=== PATIENT | female | born 1955 | race Caucasian/White ===

== ENCOUNTER 2025-01-24 00:36 | Emergency (ER) | payer MEDICARE, OTHER, SELFPAY ==
[2025-01-24 00:37] VITALS: BMI 36.6
[2025-01-24 00:52] VITALS: BP 160/79; PULSE 83; RESP 20; TEMP 37.1; O2SAT 98
--- NOTE | 2025-01-24 01:06 | PD.EDRME ---
Rapid Medical Screening Exam RME Arrival date/time: 01/24/25 00:36 Chief Complaint: Neuro Symptoms/Deficit Time Seen by Provider: 01/24/25 00:55 Vital signs: Vital Signs Temperature 98.8 F 01/24/25 00:52 Pulse Rate 83 01/24/25 00:52 Respiratory Rate 20 01/24/25 00:52 Blood Pressure 160/79 H 01/24/25 00:52 Pulse Oximetry (%) 98 01/24/25 00:52 Oxygen Delivery Method Room Air 01/24/25 00:52 Vital signs reviewed by provider: Yes RME Narrative: 69-year-old female presents to the ED with a complaint of right upper extremity numbness and tingling. Patient initially noticed symptoms on Saturday. They have become progressively worse over the past 5 days. She denies any visual or hearing changes. She denies any nausea or vomiting. She denies any speech difficulties. She denies any numbness or tingling to her right lower extremity. She denies any headache or facial symptoms. She has occasional palpitations which she describes as a neurological anxiety not a mental anxiety. She also describes a generalized weakness. I have greeted and performed a focused initial assessment of this patient. A comprehensive ED assessment and evaluation of the patient, analysis of all test results, and completion of the medical decision making process will be conducted by additional ED providers.
--- NOTE | 2025-01-24 01:09 | EKG_ITS ---
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
--- NOTE | 2025-01-24 01:09 | XR_ITS ---
Examination: CT brain head without contrast. 2-D sagittal coronal reconstructions Date and time of exam:January 24, 2025 0225 hours INDICATIONS: Right arm paresthesias today CTDI: vol (mGy):51 DLP: (mGycm):1041 Technique: Multiple CT axial sections of the brain have been obtained, 5 mm slice thickness. Contrast has not been administered. 2-D sagittal, coronal reconstructions have been obtained Low dose protocols were performed. One or more of the following dose reduction techniques were used; automated exposure control, adjustment of the mA and/or KV according to patient size, use of iterative reconstruction technique. Findings: No significant ventricular enlargement. Intra-axial or extra-axial hemorrhage density is not seen. No mass effect or midline shift Basal cisterns are not remarkable. Fourth ventricle is midline. Cranial vault intact. Impression: Negative for acute hemorrhage, mass effect or midline shift. If symptoms persist, consider brain MRI follow-up
--- NOTE | 2025-01-24 01:09 | XR_ITS ---
Examination: PA lateral chest 2 views TECHNIQUE: Upright PA and lateral chest 2 views Chest pain and left arm pain and weakness today Date and time: January 24, 2025 compared to chest films dating to January 01, 2021 FINDINGS: Stable bilateral pulmonary nodules compared with January 11, [address] chest report March 03, 2021 Normal heart size No pneumonia or pulmonary edema IMPRESSION: No pneumonia or pulmonary edema
[2025-01-24 01:19] LABS: Collection Type, Urine Clean Catch
[2025-01-24 01:34] LABS: Bacteria,Urine Rare; Bilirubin,Urine Negative (Negative); Blood,Urine Negative (Negative); Clarity,Urine Clear (Clear/Hazy); Color,Urine Colorless (Lt Yel-Yel); Glucose, Urine Negative (Negative); Ketones,Urine Negative (Negative); Leukocyte Esterase,Urine Negative (Negative); Nitrite,Urine Negative (Negative); PH,Urine 6.5 (5.0-7.0); Protein,Urine Negative (Neg - Trace); RBC,Urine 1 /hpf (0-3); Specific Gravity,Urine 1.005 (1.001-1.035); Squamous Epithelial Cell,Urine 2 /hpf (0-5); Urobilinogen,Urine Negative mg/dL (0.0-1.0); WBC,Urine < 1 /hpf (0-5)
[2025-01-24 01:53] LABS: Basophils # (Auto) 0.1 Thou/mm3 (0.0-0.2); Basophils % (Auto) 1 % (0-2.5); Eosinophils # (Auto) 0.1 Thou/mm3 (0.0-0.5); Eosinophils % (Auto) 1 % (0-10); Hemoglobin 10.3 g/dL (12.0-16.0); Immature Granulocytes % (Auto) 0 % (0-0); Immature Granulocytes Auto 0.05 Thou/mm3 (0.00-0.00); Lymphocytes # (Auto) 2.4 Thou/mm3 (1.0-4.8); Lymphocytes % (Auto) 19 % (10-50); Mean Corpuscular HGB Conc 29.4 g/dl (31.0-37.0); Mean Corpuscular Hemoglobin 18.2 pg (25.0-35.0); Mean Corpuscular Volume 62 fL (80-100); Monocytes # (Auto) 0.7 Thou/mm3 (0.0-0.8); Monocytes % (Auto) 5 % (0-12); Neutrophils # (Auto) 9.1 Thou/mm3 (1.8-7.7); Neutrophils % (Auto) 73 % (37-80); Nucleated Red Blood Cell % 0 /100 WBC (0); Platelet Count 285 Thou/mm3 (140-440); RDW Standard Deviation 41.6 fL (36.4-46.3); Red Blood Count 5.65 Miln/mm3 (4.00-5.20); White Blood Count 12.4 Thou/mm3 (3.6-11.0)
[2025-01-24 02:09] LABS: Partial Thromboplastin Time 26.3 Seconds (22.0-36.0); Prothrombin Time 10.9 Seconds (9.0-12.2)
[2025-01-24 02:11] LABS: B-Type Natriuretic Peptide < 20 pg/mL (0-100)
[2025-01-24 02:20] LABS: Alanine Aminotransferase 30 U/L (10-49); Albumin, Serum 4.7 gm/dL (3.4-4.8); Albumin/Globulin Ratio 1.8 (1.2-2.2); Alkaline Phosphatase 118 U/L (46-116); Anion Gap 11 (7-16); Aspartate Amino Transferase 31 U/L (0-34); BUN/Creatinine Ratio 14 Ratio (12-20); Bilirubin,Total 0.6 mg/dL (0.3-1.2); Blood Urea Nitrogen 13 mg/dL (9-23); Calcium 9.1 mg/dL (8.3-10.6); Calcium (Corrected) 9.1 mg/dL (8.5-10.1); Carbon Dioxide 23.2 mMol/L (20.0-31.0); Chloride 106 mMol/L (98-107); Creatinine (Component) 0.9 mg/dL (0.6-1.3); Globulin 2.6 gm/dL (2.3-3.5); Glucose 105 mg/dL (74-106); LDH (Lactate Dehydrogenase) 205 U/L (120-246); Magnesium 1.7 mg/dL (1.6-2.6); Osmolality,Calculated 279 (275-295); Sodium 140 mMol/L (136-145); Total Protein 7.3 gm/dL (5.7-8.2); eGFR > 60 See Note
--- NOTE | 2025-01-24 03:13 | PRELIM_ITS ---
CT scan of the head without intravenous contrast (axial sections with sagittal and coronal reformats). January 24, 2025 at 0225 hours Clinical History: Right upper extremity numbness/tingling, gen weakness. Comparison: None currently available for review Findings: There is mild white matter disease within the cerebral hemispheres which is nonspecific but may represent chronic small vessel ischemic change. There is no intracranial hemorrhage, extra-axial collection, mass, mass-effect or midline shift. There is good lemus-white differentiation. There is no CT evidence of acute large vascular territorial infarct. Ventricles are not enlarged or effaced. There are vascular calcifications along the carotid siphons bilaterally. Visualized paranasal sinuses and tympanomastoid cavities are clear. The bony calvarium is intact. Impression: No intracranial hemorrhage, mass-effect or midline shift. No CT evidence of acute large vascular territorial infarct. Report Electronically Signed By: Leo Mitchell 01/24/2025 3:12:59 AM [EST]
[2025-01-24 03:27] LABS: Path Review Blood Smear Sent to Pathologist
[2025-01-24 05:37] VITALS: BP 171/90; PULSE 70; RESP 18; TEMP 36.7; O2SAT 98
--- NOTE | 2025-01-24 07:00 | EDNOTE_ITS ---
ED General RME/HPI General Chief complaint: Neuro Symptoms/Deficit Stated complaint: WEAKNESS AND NUMBNESS IN RIGHT ARM Time Seen by Provider: 01/24/25 00:55 Arrival date/time: 01/24/25 00:36 Limitations: no limitations RME / HPI RME / HPI narrative: 69-year-old female presents to the ED with a complaint of right upper extremity numbness and tingling. Patient initially noticed symptoms on Saturday. They have become progressively worse over the past 5 days. She denies any visual or hearing changes. She denies any nausea or vomiting. She denies any speech difficulties. She denies any numbness or tingling to her right lower extremity. She denies any headache or facial symptoms. She has occasional palpitations which she describes as a neurological anxiety not a mental anxiety. She also describes a generalized weakness. I have greeted and performed a focused initial assessment of this patient. A comprehensive ED assessment and evaluation of the patient, analysis of all test results, and completion of the medical decision making process will be conducted by additional ED providers. DR. PATE MAIN ED EVALUATION: 69 year old female presents to the Emergency Department with complaint of events lasting seconds to a few minutes consisting of right arm weakness and right hand numbness. Onset of symptoms on/off for 5 days, last event was at 642 AM today. No right arm pain at all. No neck pain, no headache, no chest pain, or any pain. PMHx: Hypertension, diabetes, hyperlipidemia, and bad right shoulder from old accident but no surgery done. Social Hx: No tobacco, alcohol, or substance use. Related Data Home Medications ?Medication ?Instructions ?Recorded ?Confirmed metformin 500 mg tablet 500 mg PO QDAY 04/13/2404/02 metoprolol succinate 25 mg capsule 25 mg PO QDAY 04/1304/13/24 sprinkle, ext. release 24 hr Allergies Allergy/AdvReac Type Severity Reaction Status Date / Time No Known Allergies Allergy Verified 04/13/24 11:26 Review of Systems Review of Systems Systems Reviewed: All systems reviewed, normal except as documented Past Medical History Past Medical History NEUROLOGIC: Positive Neurological Disorders and Transient Ischemic Attacks (TIA) (October 2022) CARDIAC: Positive Cardiac Disorders and Hypertension RESPIRATORY: Positive Sleep Apnea GASTROINTESTINAL: Positive Gastrointestinal Disorders and Obesity MUSCULOSKELETAL: Positive Musculoskeletal Disorders and Arthritis ENDOCRINE: Positive Endocrine Disorders and Diabetes Mellitus Type 2 OTHER HISTORY: Positive Hospitalization (TIA), Anesthesia Reactions (it took 3 weeks to wake up) and Measles Family History FAMILY HISTORY: Positive Family Psychiatric Problems, Family Cardiac Disorders and Family Surgery Surgical History SURGICAL: Positive Adenoidectomy and Abdominal Surgery Social History SMOKING STATUS: Never smoker SUBSTANCE USE: does not use ALCOHOL: Never ED Exam General Limitations: Present no limitations General appearance: Present alert and in no apparent distress Head Head exam: Present atraumatic, normocephalic and normal inspection Eye Eye exam: Present normal appearance, PERRL and EOMI ENT ENT exam: Present normal exam, normal oropharynx and mucous membranes moist Neck Neck exam: Present normal inspection, full ROM and trachea midline Chest Chest inspection: Present normal inspection and symmetric chest wall rise Respiratory Respiratory exam: Present normal lung sounds bilaterally Cardiovascular Cardiovascular exam: Present regular rate, normal rhythm and normal heart sounds Abdominal Exam Abdominal exam: Present soft and normal bowel sounds Extremities Exam Extremities exam: Present normal inspection and full ROM Back Exam Back exam: Present normal inspection and full ROM Neurological Exam Neurological exam: Present alert, oriented X3 and CN II-XII intact Psychiatric Psychiatric exam: Present normal affect and normal mood Skin Skin exam: Present warm, dry, intact and normal color Course Quality Measures none Orders Category Date Time Status EKG (ED ONLY) *Do not use* NOW Care 01/24/25 01:[address] head/brain wo con Stat Exams 01/24/25 01:09 Completed EKG (ED Only) Stat Exams 01/24/25 01:09 Draft XR chest 2V Stat Exams 01/24/25 01:09 Completed B-Type Natriuretic Peptide Stat Lab 01/24/25 01:44 Completed CBC Stat Lab 01/24/25 01:44 Completed Comprehensive Metabolic Panel Stat Lab 01/24/25 01:44 Completed LDH (Lactate Dehydrogenase) Stat Lab 01/24/25 01:44 Completed Magnesium Stat Lab 01/24/25 01:44 Completed Partial Thromboplastin Time Stat Lab 01/24/25 01:44 Completed Path Review Blood Smear Stat Lab 01/24/25 01:44 Completed Prothrombin Time with INR Stat Lab 01/24/25 01:44 Completed Troponin I Stat Lab 01/24/25 01:44 Completed Urinalysis Stat Lab 01/24/25 01:15 Completed Vital Signs Vital signs: Vital Signs Temperature 98.8 F 01/24/25 00:52 Pulse Rate 83 01/24/25 00:52 Respiratory Rate 20 01/24/25 00:52 Blood Pressure 160/79 H 01/24/25 00:52 Pulse Oximetry (%) 98 01/24/25 00:52 Oxygen Delivery Method Room Air 01/24/25 00:52 Discharge Plan Plan Patient Disposition: HOME (Self Care) Prescriptions/Referrals Prescriptions/Med Rec: No Action metformin 500 mg Tablet 500 mg PO QDAY metoprolol succinate 25 mg Capsule,Sprinkle,Er 24hr 25 mg PO QDAY Referrals: Jamilah Rashid PA-C [Primary Care Provider] - In 1 week Problem List Clinical Impression: Arm paresthesia, right Patient/Caregiver Discharge Instructions Education Materials: ED Paraesthesias Additional Instructions: Please follow-up with your primary care physician within a week and consider a neurologist referral. Return to the Emergency Department as needed. Print Language: Grenadian Stand Alone Forms: [employer] Award Info., Patient Portal Info Letter MDM Narrative [facility] hospital course: I, Diamante Rodrigez am scribing for and in the presence of Dr. Pate. Clinical Information Provided by patient Medical Records Reviewed [facility] Meds/Rx Considered, not Ordered None Labs/Rad/Tests considered, not Ordered None Chronic Illness/Social Conditions Add or document further as needed: Hypertension, diabetes, hyperlipidemia, and bad right shoulder from old accident but no surgery done. EKG Interpretation EKG #1: Date/time of EK01/24/25 0111 hours EKG interpretation: sinus rhythm, rate 86, no acute changes, LA interval 207 ms, QRS duration 100 ms, QT/QTc 374/447, P-R-T axis 57, 22, 50 Lab Interpretation Labs: interpreted by mt Lab(s) interpretation(s): no acute findings Imaging Radiology reports / interpretation(s): Procedure(s): CT head/brain wo con Accession Number(s): [id number] cc: Jamilah Rashid PA-C; Julio César Martínez MD; Vicky Allen PA-C~ Examination: CT brain head without contrast. 2-D sagittal coronal reconstructions Date and time of exam:January 24, 2025 0225 hours INDICATIONS: Right arm paresthesias today CTDI: vol (mGy):51 DLP: (mGycm):1041 Technique: Multiple CT axial sections of the brain have been obtained, 5 mm slice thickness. Contrast has not been administered. 2-D sagittal, coronal reconstructions have been obtained Low dose protocols were performed. One or more of the following dose reduction techniques were used; automated exposure control, adjustment of the mA and/or KV according to patient size, use of iterative reconstruction technique. Findings: No significant ventricular enlargement. Intra-axial or extra-axial hemorrhage density is not seen. No mass effect or midline shift Basal cisterns are not remarkable. Fourth ventricle is midline. Cranial vault intact. Impression: Negative for acute hemorrhage, mass effect or midline shift. If symptoms persist, consider brain MRI follow-up Dictated By: Julio César Martínez MD Procedure(s): XR chest 2V Accession Number(s): [id number] cc: Jamilah Rashid PA-C; Julio César Martínez MD; Vicky Allen PA-C~ Examination: PA lateral chest 2 views TECHNIQUE: Upright PA and lateral chest 2 views Chest pain and left arm pain and weakness today Date and time: January 24, 2025 compared to chest films dating to January 01, 2021 FINDINGS: Stable bilateral pulmonary nodules compared with January 11, [address] chest report March 03, 2021 Normal heart size No pneumonia or pulmonary edema IMPRESSION: No pneumonia or pulmonary edema Dictated By: Julio César Martínez MD Medication Administration(s) none Diagnosis Differential diagnosis: Right arm paresthesia, muscle spasm, TIA Most likely dx, and/or detailed dx discussion: Right arm paresthesia Dispositon Disposition: Discharge Home
[2025-01-24 07:22] VITALS: BP 168/88; PULSE 72; RESP 18; TEMP 36.7; O2SAT 98
== END 2025-01-24 07:23 | disposition home or self-care (01) ==
PROVIDERS: Physician Assistant; Emergency Provider Emergency Medicine; PCP Physician Assistant Medical
DX: R20.2 Paresthesia of skin (principal); R00.2 Palpitations; R53.1 Weakness; E11.9 Type 2 diabetes mellitus without complications; E78.5 Hyperlipidemia, unspecified; I10 Essential (primary) hypertension
CPT/HCPCS: 36415; 70450; 71046; 80053; 81001; 83615; 83735; 83880; 84484; 85025; 85610; 85730; 93005; 99284

== ENCOUNTER → 2025-04-01 | Outpatient (CLI) | payer MEDICARE, OTHER, SELFPAY ==
--- NOTE | 2025-04-01 | XR_ITS ---
Examination: Ultrasound-guided fine needle percutaneous aspiration thyroid nodule, left thyroid nodule. Thyroid sonography, limited Exam date and time: April 01, 2025 1003 hours INDICATIONS: Left thyroid nodule on thyroid sonogram today. Technique: A timeout was completed verifying correct patient, procedure, site, positioning and special equipment if applicable. The patient was placed in supine position for the thyroid fine needle percutaneous aspiration The patient's left neck was prepped and draped in sterile fashion. Maximum barrier sterile technique, hand hygiene, ultrasound sterile technique. 1% lidocaine was used to anesthetize the skin and subcutaneous tissues to the patient's right thyroid nodule. Multiple fine needle aspirations were performed and multiple thyroid specimens placed in preservative according to the irm protocol. Specimens appears satisfactory. The attending radiologist was present for the entire procedure. Estimated blood loss 3 cc. The patient tolerated the procedure well and there were no complications. Impression: Successful ultrasound-guided fine-needle percutaneous aspiration thyroid nodule, left thyroid nodule.
[2025-04-01 07:56] LABS: Basophils # (Auto) 0.1 Thou/mm3 (0.0-0.2); Basophils % (Auto) 1 % (0-2.5); Eosinophils # (Auto) 0.4 Thou/mm3 (0.0-0.5); Eosinophils % (Auto) 4 % (0-10); Hematocrit 41.0 % (36.0-46.0); Hemoglobin 11.9 g/dL (12.0-16.0); Immature Granulocytes Auto 0.02 Thou/mm3 (0.00-0.00); Lymphocytes # (Auto) 2.2 Thou/mm3 (1.0-4.8); Lymphocytes % (Auto) 23 % (10-50); Mean Corpuscular HGB Conc 29.0 g/dl (31.0-37.0); Mean Corpuscular Hemoglobin 20.1 pg (25.0-35.0); Mean Corpuscular Volume 69 fL (80-100); Monocytes # (Auto) 0.7 Thou/mm3 (0.0-0.8); Monocytes % (Auto) 7 % (0-12); Neutrophils # (Auto) 6.4 Thou/mm3 (1.8-7.7); Neutrophils % (Auto) 66 % (37-80); Nucleated Red Blood Cell # 0.00 Thou/mm3 (0.00-0.00); Nucleated Red Blood Cell % 0 /100 WBC (0); Platelet Count 312 Thou/mm3 (140-440); RDW Standard Deviation 55.2 fL (36.4-46.3); Red Blood Count 5.93 Miln/mm3 (4.00-5.20); White Blood Count 9.7 Thou/mm3 (3.6-11.0)
[2025-04-01 09:09] LABS: INR 1.0 (0.9-1.3); Partial Thromboplastin Time 27.8 Seconds (22.0-36.0); Prothrombin Time 10.7 Seconds (9.0-12.2)
--- NOTE | 2025-04-01 09:30 | XR_ITS ---
Examination: Ultrasound-guided fine needle percutaneous aspiration thyroid nodule, right thyroid nodule. Thyroid sonography, limited Exam date and time: April 01, 2025 1001 hours INDICATIONS: Right thyroid nodule on thyroid sonogram today. Technique: A timeout was completed verifying correct patient, procedure, site, positioning and special equipment if applicable. The patient was placed in supine position for the thyroid fine needle percutaneous aspiration The patient's right neck was prepped and draped in sterile fashion. Maximum barrier sterile technique, hand hygiene, ultrasound sterile technique. 1% lidocaine was used to anesthetize the skin and subcutaneous tissues to the patient's right thyroid nodule. Multiple fine needle aspirations were performed and multiple thyroid specimens placed in preservative according to the irm protocol. Specimens appears satisfactory. The attending radiologist was present for the entire procedure. Estimated blood loss 3 cc. The patient tolerated the procedure well and there were no complications. Impression: Successful ultrasound-guided fine-needle percutaneous aspiration thyroid nodule, right thyroid nodule.
--- NOTE | 2025-04-01 09:30 | XR_ITS ---
Examination: Thyroid sonography complete TECHNIQUE: Grayscale sonographic images thyroid lobes Date and time: April 01, 2025 0950 hours INDICATIONS: History thyroid nodules FINDINGS: Right thyroid 5.1 cm Midpole nodule 13 x 17 mm Left thyroid 4.1 cm Midpole nodule 14 x 11 mm IMPRESSION: Bilateral thyroid nodules as above
== END | disposition home or self-care (01) ==
PROVIDERS: Radiology Diagnostic Radiology; PCP Physician Assistant Medical; Referring Provider Physician Assistant Medical; Visit Provider Physician Assistant Medical
DX: E04.2 Nontoxic multinodular goiter (principal)
CPT/HCPCS: 10005; 10006; 36415; 76536; 85025; 85610; 85730

== ENCOUNTER 2025-07-06 11:55 | Day surgery (SDC) | payer MEDICARE, OTHER, SELFPAY ==
--- NOTE | 2025-07-02 11:20 | EKG_ITS ---
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
[2025-07-02 11:28] LABS: Collection Type, Urine Clean Catch
[2025-07-02 12:11] LABS: Basophils # (Auto) 0.1 Thou/mm3 (0.0-0.2); Basophils % (Auto) 1 % (0-2.5); Eosinophils # (Auto) 0.5 Thou/mm3 (0.0-0.5); Eosinophils % (Auto) 5 % (0-10); Hematocrit 38.2 % (36.0-46.0); Hemoglobin 11.2 g/dL (12.0-16.0); Immature Granulocytes Auto 0.03 Thou/mm3 (0.00-0.00); Lymphocytes # (Auto) 2.8 Thou/mm3 (1.0-4.8); Lymphocytes % (Auto) 28 % (10-50); Mean Corpuscular HGB Conc 29.3 g/dl (31.0-37.0); Mean Corpuscular Hemoglobin 21.0 pg (25.0-35.0); Mean Corpuscular Volume 72 fL (80-100); Monocytes # (Auto) 0.9 Thou/mm3 (0.0-0.8); Monocytes % (Auto) 9 % (0-12); Neutrophils # (Auto) 6.0 Thou/mm3 (1.8-7.7); Neutrophils % (Auto) 58 % (37-80); Nucleated Red Blood Cell # 0.00 Thou/mm3 (0.00-0.00); Nucleated Red Blood Cell % 0 /100 WBC (0); Platelet Count 314 Thou/mm3 (140-440); RDW Standard Deviation 44.0 fL (36.4-46.3); Red Blood Count 5.34 Miln/mm3 (4.00-5.20); White Blood Count 10.3 Thou/mm3 (3.6-11.0)
[2025-07-02 12:16] LABS: Partial Thromboplastin Time 27.7 Seconds (22.0-36.0)
[2025-07-02 12:18] LABS: Bilirubin,Urine Negative (Negative); Blood,Urine Negative (Negative); Clarity,Urine Clear (Clear/Hazy); Color,Urine Lt-Yellow (Lt Yel-Yel); Glucose, Urine Negative (Negative); Ketones,Urine Negative (Negative); Leukocyte Esterase,Urine Negative (Negative); Nitrite,Urine Negative (Negative); PH,Urine 6.0 (5.0-7.0); Protein,Urine Negative (Neg - Trace); RBC,Urine 2 /hpf (0-3); Specific Gravity,Urine 1.012 (1.001-1.035); Squamous Epithelial Cell,Urine < 1 /hpf (0-5); Urobilinogen,Urine Negative mg/dL (0.0-1.0); WBC,Urine < 1 /hpf (0-5)
[2025-07-02 12:24] LABS: Alanine Aminotransferase 14 U/L (10-49); Albumin, Serum 4.7 gm/dL (3.4-4.8); Albumin/Globulin Ratio 2.2 (1.2-2.2); Alkaline Phosphatase 122 U/L (46-116); Anion Gap 10 (7-16); Aspartate Amino Transferase 16 U/L (0-34); BUN/Creatinine Ratio 15 Ratio (12-20); Bilirubin,Total 0.3 mg/dL (0.3-1.2); Blood Urea Nitrogen 15 mg/dL (9-23); Calcium 9.7 mg/dL (8.3-10.6); Calcium (Corrected) 9.7 mg/dL (8.5-10.1); Carbon Dioxide 24.8 mMol/L (20.0-31.0); Chloride 107 mMol/L (98-107); Creatinine (Component) 1.0 mg/dL (0.6-1.3); Globulin 2.1 gm/dL (2.3-3.5); Glucose 100 mg/dL (74-106); Osmolality,Calculated 283 (275-295); Potassium 4.5 mMol/L (3.4-5.1); Sodium 142 mMol/L (136-145); Total Protein 6.8 gm/dL (5.7-8.2); eGFR > 60 See Note
[2025-07-05 13:45] VITALS: BMI 33.4
[2025-07-06] VITALS (11 sets, daily range): BP systolic 123–168; BP diastolic 77–101; PULSE 63–92; RESP 15–20; TEMP 36.4–37.1; O2SAT 95–100; BMI 36.0
[2025-07-06] MEDS: RINGERS LACTATED 1000 ML 1,000 ML 60 ML IV (12:56)
--- NOTE | 2025-07-06 15:15 | SUR.PHASEII ---
1515: Pt. AAOx4, vitals stable, breathing unlabored, no complaint of pain or nausea, no dressing in place, no active bleed noted, report received from MD Shook and Carlota ELIZALDE.
--- NOTE | 2025-07-06 15:27 | XR_ITS ---
Examination: CT abdomen, without intravenous contrast. CT pelvis, without intravenous contrast. CT abdomen, with intravenous contrast. CT pelvis, with intravenous contrast. 2-D sagittal coronal reconstructions. 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 Multiple 3.0 postcontrast images abdomen and pelvis also obtained, post intravenous injection 60 cc [id number] 3D sagittal coronal reconstructions Low dose protocols, dose reduction techniques automated exposure control, adjustment of MA KV according to patient size FINDINGS: There are no focal liver or splenic lesions Absent gallbladder No pancreatic or adrenal mass No renal or ureteral calculi, no hydronephrosis Anterior abdominal wall hernia defect 5 cm containing fat Poorly defined masslike area in the cecum, axial image 126 with multiple pericecal abnormal lymph nodes, the largest 18 mm Normal appendix No bowel obstruction No bladder mass Significant osteopenia Impression: Poorly defined masslike area in the cecum with multiple abnormal pericecal lymph nodes
--- NOTE | 2025-07-06 16:30 | SUR.PHASEII ---
1630: Taking pt. down for CT.
--- NOTE | 2025-07-06 17:00 | SUR.PHASEII ---
1700: Pt. brought back from CT, Pt. tolerated well.
--- NOTE | 2025-07-06 17:30 | SUR.PHASEII ---
1730: Pt. AAOx4, vitals stable, breathing unlabored, no complaint of pain or nausea, pt. able to pass flatus, pt. tolerated bites of jello well, pt. ambulated to wheelchair with steady gait and no assist, no complications. Gave discharge instructions to the pt. and her ride, both verbalized understanding and had no further questions. Pt. left with all personal belongings.
== END 2025-07-06 17:30 | disposition home or self-care (01) ==
LOC: S2EX 17:41
PROVIDERS: PCP Physician Assistant Medical; Referring Provider Specialist; Visit Provider Specialist
PROC: 0DJD8ZZ Inspection of Lower Intestinal Tract, Via Natural or Artificial Opening Endoscopic (ICD-10-PCS; CPT 45378; principal; 2025-07-06 14:30)
DX: Z12.11 Encounter for screening for malignant neoplasm of colon (principal); C18.0 Malignant neoplasm of cecum; D12.4 Benign neoplasm of descending colon; K63.89 Other specified diseases of intestine; Z01.810 Encounter for preprocedural cardiovascular examination
CPT/HCPCS: 45385; 36415; 74178; 80053; 81001; 85025; 85730; 93005; A4649; J7120; Q9967

== ENCOUNTER → 2025-08-04 | Outpatient (CLI) | payer MEDICARE, OTHER, SELFPAY ==
--- NOTE | 2025-08-04 12:20 | XR_ITS ---
Examination: Bone densitometry Date and time of exam: August 04, 2025, 1301 hours INDICATIONS: Menopause age 52 hysterectomy age 68, diabetic, calcium and vitamin D 2 years Technique: Lumbar spine and hip total bone mineralization values of an calculated. Peak reference and age match control results have been displayed. Findings: Lumbar spine total bone mineralization is 1.234 gm/cm2. This is 1.7 standard deviations above peak reference. This is 3.6 standard deviations above age-matched controls. Hip total bone mineralization is 0.890 gm/cm2 This is 0.4 standard deviations below peak reference. This is 0.9 standard deviations above age-matched controls Impression: There is normal mineralization based on lumbar spine measurements. There is osteopenia based on hip measurements
== END | disposition home or self-care (01) ==
LOC: CDIM 12:30
PROVIDERS: Referring Provider Physician Assistant Medical; Visit Provider Physician Assistant Medical
DX: M85.88 Other specified disorders of bone density and structure, other site (principal)
CPT/HCPCS: 77080